=== PATIENT | female | born 1965 ===

== ENCOUNTER 2020-09-24 10:31 | Outpatient (CLI) | payer OTHER | END 2020-09-24 10:40 | disposition home or self-care (01) | LOC: PPH VACUNA 10:31 | DX: Z23 Encounter for immunization (principal) ==

== ENCOUNTER 2021-05-27 12:55 | Outpatient (CLI) | payer OTHER | END 2021-05-27 13:00 | disposition home or self-care (01) | LOC: PPH VACUNA 12:55 | PROVIDERS: ATTEND Emergency Medicine Pediatric Emergency Medicine | DX: Z23 Encounter for immunization (principal) ==